=== PATIENT | female | born 1995 | race Two or more races ===

== ENCOUNTER → 2018-12-16 | Outpatient (CLI) | payer OTHER ==
--- NOTE | 2018-12-16 12:02 | REP ---
Right clavicle: Two views. History: Acute pain. Injury. Findings: Two views of the right clavicle demonstrate no evidence of fracture or subluxation. The glenohumeral, acromioclavicular, and sternoclavicular joints appear normally aligned. Periarticular soft tissues are unremarkable. Impression: Negative radiographs of the right clavicle. Electronically Signed by Ralf Barton MD 12/16/2018 11:53 A
--- NOTE | 2018-12-16 12:03 | REP ---
Right humerus: Three views. History: Pain after fall. Findings: Three views of the right humerus demonstrate normal bones, joints, and soft tissues. No fracture or subluxation is seen. Impression: Negative radiographs of the right humerus. Electronically Signed by Ralf Barton MD 12/16/2018 11:53 A
== END ==
LOC: M LRY 11:28
PROVIDERS: ATTEND Physician Assistant
DX: M25.511 Pain in right shoulder (principal); M79.621 Pain in right upper arm